=== PATIENT | male | born 2000 | race Caucasian/White ===

== ENCOUNTER → 2020-07-25 19:13 | Outpatient (BNVA) | payer BC, SELFPAY | PROVIDERS: Family Provider Counselor Professional; Visit Provider Nurse Practitioner Family | DX: N39.0 Urinary tract infection, site not specified (principal); Z86.19 Personal history of other infectious and parasitic diseases; Z20.2 Contact with and (suspected) exposure to infections with a predominantly sexual mode of transmission; Z68.21 Body mass index [BMI] 21.0-21.9, adult; Z71.89 Other specified counseling | CPT/HCPCS: 87491; 87591 ==

== ENCOUNTER 2020-11-27 13:01 | Emergency (ER) | payer BC, SELFPAY ==
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
[2020-11-27 13:05] VITALS: BP 135/86; PULSE 93; RESP 18; O2SAT 97; BMI 21.2
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
[2020-11-27 14:04] VITALS: BP 125/78; PULSE 86; RESP 18; O2SAT 99
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
[2020-11-27] MEDS: iohexol 300 mg/mL 100 mL Btl IV (14:53)
[2020-11-27 15:00] VITALS: BP 124/80; PULSE 78; RESP 18; O2SAT 99
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
--- NOTE | 2020-11-27 15:46 | PC.NURSE ---
Dr Bell removed C-collar. Voided 450cc yellow and clear.
[2020-11-27] MEDS: ketorolac 30 mg/mL INJ IVP (16:41)
[2020-11-27 17:00] VITALS: BP 131/79; PULSE 84; RESP 18; O2SAT 98
[2020-11-27 17:46] VITALS: BP 130/76; PULSE 82; RESP 18; TEMP 36.6; O2SAT 96
== END 2020-11-27 17:46 | disposition home or self-care (01) ==
PROVIDERS: Emergency Provider Emergency Medicine; PCP Family Medicine
DX: S80.812A Abrasion, left lower leg, initial encounter (principal); M25.512 Pain in left shoulder; V29.9XXA Motorcycle rider (driver) (passenger) injured in unspecified traffic accident, initial encounter
CPT/HCPCS: 70450; 71260; 72125; 72170; 73030; 73552; 73590; 73630; 74177; 96374; 99284; J1885; Q9967

== ENCOUNTER 2020-12-01 12:16 | Outpatient (CLI) | payer BC, SELFPAY ==
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
== END 2020-12-01 12:17 | disposition home or self-care (01) ==
PROVIDERS: PCP Family Medicine; Visit Provider Family Medicine
DX: M25.572 Pain in left ankle and joints of left foot (principal); M25.512 Pain in left shoulder; M25.562 Pain in left knee; V89.1XXA Person injured in unspecified nonmotor-vehicle accident, nontraffic, initial encounter
CPT/HCPCS: 73030; 73562; 73600